=== PATIENT | male | born 1975 | race Two or more races ===

== ENCOUNTER 2016-05-13 02:18 | Emergency (ER) | payer OTHER ==
--- NOTE | 2016-05-13 06:17 | CT ---
EXAMINATION:CT SCAN HEAD W/O CONTRAST. CLINICAL INDICATION:Slipped on ice. Head trauma. COMPARISON:None TECHNIQUE: A Cranial CT was performed using a [employer] multislice CT scanner. Axial images were acquired from just above the vertex through the skull base. 4 mm stacked axial, sagittal, and coronal reconstructed images were reviewed. FINDINGS: The CSF-containing spaces are within normal limits. The thompson/white matter attenuation characteristics are within normal limits. No acute intracranial hemorrhage or extra-axial fluid collections are identified.:There is no mass effect or midline shift. The posterior fossa is unremarkable. The cerebellar pontine angle cisterns are normal and symmetric. The osseous structures are intact. The paranasal sinuses are unremarkable. The orbits and retrobulbar regions are unremarkable.:The mastoid sinuses are clear. There is a prominent left frontal parietal scalp hematoma. No adjacent fracture is identified. IMPRESSION: No acute intracranial hemorrhage, mass or mass effect is identified. There is a left frontal parietal scalp hematoma. Findings were communicated by [facility] to the emergency department at: 2:59 AM 05/13/2016
== END 2016-05-13 03:36 | disposition home or self-care (01) ==
LOC: ED 02:18
DX: S06.0X1A Concussion with loss of consciousness of 30 minutes or less, initial encounter (principal); S00.83XA Contusion of other part of head, initial encounter; W00.0XXA Fall on same level due to ice and snow, initial encounter; Y93.01 Activity, walking, marching and hiking; Y99.0 Civilian activity done for income or pay